=== PATIENT | male | born 1975 | race African-American/Black ===

== ENCOUNTER 2017-06-20 08:00 | Inpatient (IN) | payer OTHER ==
[2017-06-17 17:52] VITALS: BMI 24.7
[~2017-06-20 08:00] MED LIST: VANCOMYCIN 1,000 MG VIAL (RESTRICTED TO ID ONLY) IVPB ONE; ceFAZolin SODIUM 1 GM VIAL IVPB ONE
[2017-06-20] MEDS ORDERED: THROMBIN (BOVINE) 5,000 UNIT VIAL TP ONE ×4 (18:36→21:34)
[2017-06-20] MEDS ORDERED: ROCURONIUM BROMIDE 50 MG/5 ML VIAL ONE ×2 (18:55)
[2017-06-20] MEDS ORDERED: PROPOFOL 20 ML ONE ×12 (18:56)
[2017-06-20] MEDS ORDERED: LIDOCAINE HCL/PF 2% SDV 5ML VIAL ONE (18:56)
[2017-06-20] MEDS ORDERED: fentaNYL CITRATE 250 MCG/5 ML VIAL ONE ×4 (19:43→22:02)
[2017-06-20] MEDS ORDERED: VANCOMYCIN 1,000 MG VIAL (RESTRICTED TO ID ONLY) IVPB ONE (19:46)
[2017-06-20] MEDS ORDERED: ceFAZolin SODIUM 1 GM VIAL IVPB ONE ×2 (19:46→22:24)
[2017-06-20] MEDS ORDERED: TRANEXAMIC ACID 1000 MG/10 ML VIAL ONE ×2 (20:09→23:05)
[2017-06-20] MEDS ORDERED: DEXAMETHASONE SOD PHOSPHATE 4 MG/1 ML VIAL ONE (20:46)
[2017-06-20] MEDS ORDERED: GELATIN, ABSORBABLE 100 EACH SPONGE TP ONE (20:50)
--- NOTE | 2017-06-20 23:29 | OP ---
Operative Note - Note: Operative Date: 06/20/17 Pre-Operative Diagnosis: L5/S1 spondylolisthesis with instability L3/4 L4/5 L5/ S1 Stenosis with instability Operation: L3/4 L4/5 L5/S1 Laminectomy with posterior interbody fusion and L3 to S1 Posterolateral Arthrodesis Findings: Stenosis L3 to S1 Implants: Cages Interbody L5/S1 8 L4/5 L3/4 Tetrafuse. Pedicle Screw instrumentation Precision Surgeon: Rk Hsu Cannoneer: Moreno Hsu ([email or web address]) Anesthesiologist/GARMENT LINER: Jay Chacon Anesthesia: General Specimens Removed: Disc L3/4 L4/5 L5/S1 Estimated Blood Loss (mls): 500 Drains & Tubes with Location: !/8 Hemovac. Subcutaneous Operative Report Dictated: Yes
[2017-06-20] MEDS ORDERED: LACTATED RINGERS SOLUTION 1,000 ML IV SCH (23:45)
[2017-06-20] MEDS ORDERED: ONDANSETRON 4 MG/2 ML VIAL IVPUSH PRN ×2 (23:53→23:58)
[2017-06-20] MEDS ORDERED: PROMETHAZINE HCL 25 MG/1 ML VIAL IVPUSH PRN (23:53)
[2017-06-20] MEDS ORDERED: oxyCODONE HCL 5 MG TABLET PO PRN (23:53)
--- NOTE | 2017-06-20 23:54 | PN ---
Progress Note (short form) - Note Progress Note: 41M s/p L3-L4, L4-L5, L5-S1 PLIF; L3-S1 laminectomies; L3-S1 posterior instrumented spinal fusion POD #0. -Pain control: per anaesthesia team; SALES AND LEASING CONSULTANT. -Mechanical DVT PPx. only: SCD's, HEATHER's. -Incentive spirometry; aggressive pulmonary toilet; raise head of bed as tolerated. -NPO until flatus. -PT/OT/Rehab, OOB. -WBAT B/L LE. -f/u drain output. -Maintain Marr catheter until ambulating. -Renata-op Abx: Ancef, Vanc. -Admit to ICU immediately post-op. -Care per medical hospitalist team. -Discharge planning. -Will follow. Rk Hsu MD (Orthopaedic Surgery).
[2017-06-20] MEDS ORDERED: HYDROmorphone *PCA* 6MG/30ML DISP.SYRIN PCA ONE (23:57)
[2017-06-20] MEDS ORDERED: diazePAM CARPU-JECT 10 MG/2 ML DISP.SYRIN IVPUSH PRN (23:58)
[2017-06-21] MEDS: KETOROLAC TROMETHAMINE 30 MG/1 ML VIAL IVPUSH PRN ×2 (00:15→21:25)
[2017-06-21] MEDS: ACETAMINOPHEN 1000 MG/100 ML VIAL (NON FORMULARY) IVPB SCH ×3 (00:30→15:45)
[2017-06-21] MEDS ORDERED: DESFLURANE GAS 240 ML BOTTLE IH ONE (00:40)
[2017-06-21] MEDS: HYDROmorphone *PCA* 6MG/30ML DISP.SYRIN PCA SCH ×2 (01:20→15:10)
[2017-06-21 06:55] LABS: HEMATOCRIT 34.5 % (35.4-49); HEMOGLOBIN 11.6 GM/dL (11.7-16.9); MCH 28.9 pg (25.7-33.7); MCHC 33.7 g/dl (32.0-35.9); MEAN CELL VOLUME 85.6 fl (80-96); MEAN PLT VOLUME 9.2 fl (7.5-11.1); PLATELET COUNT 161 K/MM3 (134-434); RBC 4.02 M/mm3 (4.00-5.60); RDW 14.1 % (11.9-15.9)
[2017-06-21] MEDS ORDERED: VANCOMYCIN 1,000 MG in DEXTROSE 5%-WATER - 250 ML IVPB ONE (07:00)
[2017-06-21 07:33] LABS: ANION GAP 8 (8-16); BLOOD UREA NITROGEN 9 mg/dL (7-18); CALCIUM 8.1 mg/dL (8.5-10.1); CHLORIDE 104 mmol/L (98-107); CO2 25 mmol/L (21-32); CREATININE 0.9 mg/dL (0.7-1.3); GLUCOSE,RANDOM 169 mg/dL (74-106); POTASSIUM 4.2 mmol/L (3.5-5.1); SODIUM 137 mmol/L (136-145)
[2017-06-21] MEDS: ceFAZolin 2 GRAM PREMIX BAG IVPB SCH (08:03)
[2017-06-21] MEDS: LACTATED RINGERS SOLUTION 1,000 ML IV SCH ×2 (09:50)
--- NOTE | 2017-06-21 12:36 | PN ---
Progress Note, Physician Chief Complaint: Day #1 s/p L3-S1 fusion - Current Medication List Current Medications: Active Medications Acetaminophen (Ofirmev Injection -) 1,000 mg IVPB Q8H [facility] Stop: 06/21/17 15:46 Last Admin: 06/21/17 09:40 Dose: 1,000 mg Diazepam (Valium Injection -) 5 mg IVPUSH Q6H PRN PRN Reason: BACK PAIN Fentanyl (Sublimaze Injection -) 50 mcg IVPUSH [id number] PRN PRN Reason: PAIN-PACU ORDER X 4 DOSES ONLY Hydromorphone HCl (Dilaudid Hooker Laster -) 0 mg REMARKETING REP REMARKETING REP KHRIS PRN Reason: Protocol Stop: 06/27/17 23:56 Last Admin: 06/21/17 01:20 Dose: Not Given Lactated Ringer's (Lactated Ringers Solution) 1,000 mls @ 100 mls/hr IV ASDIR KHRIS Last Admin: 06/21/17 09:50 Dose: 100 mls/hr Ketorolac Tromethamine (Toradol Injection -) 30 mg IVPUSH Q6H PRN PRN Reason: PAIN LEVEL 6-10 Stop: 06/25/17 23:57 Last Admin: 06/21/17 00:15 Dose: 30 mg Ondansetron HCl (Zofran Injection) 4 mg IVPUSH Q6H PRN PRN Reason: NAUSEA AND/OR VOMITING Last Admin: 06/21/17 05:57 Dose: 4 mg Ondansetron HCl (Zofran Injection) 4 mg IVPUSH Q6H PRN PRN Reason: NAUSEA AND/OR VOMITING Oxycodone HCl (Roxicodone -) 10 mg PO Q4H PRN PRN Reason: PAIN LEVEL 6-10 Stop: 06/21/17 23:52 Promethazine HCl (Phenergan Injection -) 12.5 mg IVPUSH Q6H PRN PRN Reason: NAUSEA-FOR RESCUE AFTER 15 MIN - Objective Vital Signs: Vital Signs Temperature 98.3 F 06/21/17 12:00 Pulse Rate 78 06/21/17 12:00 Respiratory Rate 18 06/21/17 12:00 Blood Pressure 136/80 06/21/17 12:00 O2 Sat by Pulse Oximetry (%) 100 06/21/17 09:00 Labs: CBC, BMP 06/21/17 05:20 03/20/18 05:20 Assessment/Plan Pt tolerated procecure well. Pain under good control with REMARKETING REP use; resting comfortably in bed. Continue current management.
--- NOTE | 2017-06-21 13:38 | OP ---
DATE OF OPERATION: DATE OF DICTATION: 06/20/2017 SURGEON: Rk Hsu MD CO-SURGEON: Moreno Hsu MD PREOPERATIVE DIAGNOSES: Segmental instability of lumbar spine due to spondylolisthesis at L5-S1, spinal stenosis at L3-4, L4-5, and L5-S1 due to diskogenic-associated disease and associated spinal stenosis and segmental instability. ANESTHESIA: General. ANTIBIOTICS GIVEN: Kefzol 2 g and vancomycin 1 g preoperative, Kefzol 1 g at the time of seating of instrumentation. OPERATION PERFORMED: 1. Laminectomy, L2, L3, L4, with undercutting facetectomy. 2. Posterior lumbar interbody fusion, L3-4, L4-5, and L5-S1 with cage. 3. Incidental durotomy and repair. 4. Zhu-Epstein osteotomy, L3-4. 5. Partial corpectomy, L5 on the left. 6. Pedicle screw instrumentation, L3, L4, L5, and S1. 7. Posterolateral arthrodesis, L3, L4, L5, and S1. 8. Complex wound closure, 20 cm. 9. Use of operating fluoroscopy and bone marrow aspirate concentrate. PROCEDURE: Patient correctly identified, brought into the operating room. Lumbar spine was prepped in the routine manner with Betadine scrub solution, wiped off with alcohol, DuraPrep applied. A midline incision was utilized. The dissection was taken from the tip of the spinous process of L2 to the tip of the spinous process of S1. Subperiosteal dissection performed. The dissection was taken down to the spinous process, over the lamina, over the facet joints, to the intertransverse plane, exposing from the ala of the sacrum right up to the transverse process and tip of the transverse process of L3. Utilizing lateral fluoroscopic x-ray, the correct levels for surgery were identified. At that level, at that point, using Leksell rongeurs, Kerrison upcuts, and osteotomes to implode the bone from the vertebral lateral wall, imploding inwards towards the canal, the entire laminae of L3, L4, and L5 were resected and an undercutting facetectomy performed at L3, L4, and L5 appropriately. This enabled a complete freeing of the entire dura. A small adherence of dura was noted, giving a very small, non-leaking dural tear, but we placed one 4-0 nylon suture into the area to ensure there was no leakage at all. Once this had been performed from the left-hand side, the disk of L5-S1 was identified. The spondylolisthesis was readily seen. It was impossible to enter the disk until this part of the vertebral body was resected. A partial corpectomy was then performed on the left lateral side, enabling access to the disk. Using panfilo, the disk was resected completely. Shaving was to a size 8, and a size 9 cage inserted 5-degree lordosis. Prior to insertion of the cage, the actual soft tissue from the disk space was resected completely. The cage insertion and the entire preparation of the cage space were performed by co-surgeon, Dr. Moreno Hsu. Once this had been performed, the exact same maneuvers were performed at L4-5 and L3-4 on the right-hand side. The cage was inserted at L4-5, and on the left -hand side, the cage was inserted appropriately at L3-4. The L3-4 cage was inserted by Dr. Moreno Hsu. The right cage was inserted by Dr. Rk Hsu. Each interdisk space was treated in exactly the same way with resection of all disk material using panfilo, serrated curettes and pituitary rongeurs. As noted above, the cage size at L5-S1 was size 9. At L4-5 and L3-4, shaving was to size 10 and pressfitted a size 11 cage. Each cage was filled with bone graft, and each interdisk space was packed with bone that had been harvested from the posterior elements and milled in a [employer] mill. Once this had been performed, at L3-4, the Zhu-Epstein osteotomy was completed by resecting the entire pars interarticularis as well as the inferior facet. This enabled correction of the tendency towards kyphosis. Pedicle screws were then inserted from L3, L4, L5, and S1, both left- and right-hand sides. Each screw tested was well above the parameters for safety. The rods were then contoured onto the screw heads, fixed solidly with the appropriate cap devices, and one crosslink applied. The bone grafts were a mixture of autologous bone mixed with allograft extension in the form of demineralized strips. This was mixed with 60 mL of marrow. This marrow was harvested from the left posterior ilium and spun down for the CD34 cells. The posterolateral arthrodesis was completed while placing bone graft in the intertransverse plane, left- and right-hand sides, on the spinous processes from L3 to S1 to the ala of the sacrum. The dura was tested with a Valsalva maneuver and found to be completely sealed. Thorough lavage throughout the operation. The retractors were released every 20-30 minutes. Muscle was appropriately trimmed of necrotic and damaged muscle. Closure: Muscle 1 Vicryl , fascia 1 Vicryl, subcutaneous 1 and 2-0 Vicryl, skin 3-0 Monocryl with Steri- Strips. Drainage: A 1/8-inch Hemovac subcutaneously x1. This completed the complex wound closure. Operation went extremely well. No complications. MD ARLIN Watkins/[id number] MTDD
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
--- NOTE | 2017-06-21 14:41 | PN ---
Teaching Attending Note Name of Resident: Asim Rivera ATTENDING PHYSICIAN STATEMENT I saw and evaluated the patient. I reviewed the resident's note and discussed the case with the resident. I agree with the resident's findings and plan as documented. SUBJECTIVE: Patient seen and examined in the ICU. POD #1: L3-L4, L4-L5, L5-S1 PLIF, L3-S1 laminectomy, and L3-S1 spinal fusion. He is awake and alert. Mild SABA and back discomfort overnight but now adequately controlled. On Dilaudid REGISTRATION SCHEDULING SPECIALIST. No CP or SOB. Intake & Output 06/18/17 06/19/17 06/20/17 06/21/17 23:59 23:59 23:59 23:59 Intake Total 2675 650 Output Total 1000 970 Balance 1675 -320 Weight 173 lb 14.4 oz Last Vital Signs Temp Pulse Resp BP Pulse Ox 100.3 F H 95 H 13 130/74 100 06/21/17 14:00 06/21/17 14:00 06/21/17 14:00 06/21/17 14:00 06/21/17 09:00 Active Medications Acetaminophen (Ofirmev Injection -) 1,000 mg IVPB Q8H [facility] Stop: 06/21/17 15:46 Last Admin: 06/21/17 09:40 Dose: 1,000 mg Diazepam (Valium Injection -) 5 mg IVPUSH Q6H PRN PRN Reason: BACK PAIN Fentanyl (Sublimaze Injection -) 50 mcg IVPUSH [id number] PRN PRN Reason: PAIN-PACU ORDER X 4 DOSES ONLY Hydromorphone HCl (Dilaudid Postal Clerk -) 0 mg REGISTRATION SCHEDULING SPECIALIST REGISTRATION SCHEDULING SPECIALIST KHRIS PRN Reason: Protocol Stop: 06/27/17 23:56 Last Admin: 06/21/17 01:20 Dose: Not Given Lactated Ringer's (Lactated Ringers Solution) 1,000 mls @ 100 mls/hr IV ASDIR KHRIS Last Admin: 06/21/17 09:50 Dose: 100 mls/hr Ketorolac Tromethamine (Toradol Injection -) 30 mg IVPUSH Q6H PRN PRN Reason: PAIN LEVEL 6-10 Stop: 06/25/17 23:57 Last Admin: 06/21/17 00:15 Dose: 30 mg Ondansetron HCl (Zofran Injection) 4 mg IVPUSH Q6H PRN PRN Reason: NAUSEA AND/OR VOMITING Last Admin: 06/21/17 05:57 Dose: 4 mg Ondansetron HCl (Zofran Injection) 4 mg IVPUSH Q6H PRN PRN Reason: NAUSEA AND/OR VOMITING Oxycodone HCl (Roxicodone -) 10 mg PO Q4H PRN PRN Reason: PAIN LEVEL 6-10 Stop: 06/21/17 23:52 Promethazine HCl (Phenergan Injection -) 12.5 mg IVPUSH Q6H PRN PRN Reason: NAUSEA-FOR RESCUE AFTER 15 MIN GENERAL: Awake, alert, and fully oriented, in no acute distress. HEAD: Normal with no signs of trauma. EYES: sclera anicteric, conjunctiva clear. No lid lag. EARS, NOSE, THROAT: Ears normal, nares patent, oropharynx clear without exudates. Moist mucous membranes. NECK: Normal range of motion, supple without lymphadenopathy, JVD, or masses. LUNGS: Breath sounds equal, clear to auscultation bilaterally. No wheezes, and no crackles. No accessory muscle use. HEART: Regular rate and rhythm, normal S1 and S2 without murmur, rub or gallop. ABDOMEN: Soft, nontender, not distended, normoactive bowel sounds, no guarding, no rebound, no masses. No hepatomegaly or splenomegaly. MUSCULOSKELETAL: Normal range of motion at all joints. No bony deformities or tenderness. No CVA tenderness. UPPER EXTREMITIES: 2+ pulses, warm, well-perfused. No cyanosis. No clubbing. Cap refill <2 seconds. No peripheral edema. LOWER EXTREMITIES: 2+ pulses, warm, well-perfused. No calf tenderness. No peripheral edema. NEUROLOGICAL: Cranial nerves II-XII intact. Normal speech. Normal gait. PSYCHIATRIC: Cooperative. Good eye contact. Appropriate mood and affect. SKIN: Warm, dry, normal turgor, no rashes or lesions noted. post-op bandages intact. Laboratory Results - last 24 hr 06/20/17 06/21/17 06/21/17 16:00 05:20 05:20 WBC 12.0 H RBC 4.02 Hgb 11.6 L Hct 34.5 L MCV 85.6 MCH 28.9 MCHC 33.7 RDW 14.1 Plt Count 161 MPV 9.2 Sodium 137 Potassium 4.2 Chloride 104 Carbon Dioxide 25 Anion Gap 8 BUN 9 Creatinine 0.9 Random Glucose 169 H Calcium 8.1 L Blood Type B POSITIVE Antibody Screen Negative ASSESSMENT/PLAN: POD#1 L3-L4, L4-L5, L5-S1 PLIF, L3-S1 laminectomy, and L3-S1 spinal fusion. -Monitor I/O's -Pain management as ordered -Incentive spirometry -Normal diet resumed after flatus -ABX per protocol -SCD's for VTE prophylaxis -Will replete electrolytes PRN -Further management per Surgical attending Dr Keller Critical care time spent in reviewing chart, evaluating patient and formulating plan - 36 minutes.
[2017-06-21] MEDS ORDERED: HYDROmorphone *PCA* 6MG/30ML DISP.SYRIN PCA ONE (15:09)
--- NOTE | 2017-06-21 16:18 | HP ---
CHIEF COMPLAINT: PCP: Surgeon: Dr. Go Hsu HISTORY OF PRESENT ILLNESS: 41 year-old male with L5/S1 spondylolisthesis with instability, and L3/4 L4/5 L5 /S1 stenosis with instability, now s/p L3/4 L4/5 L5/S1 laminectomy with posterior interbody fusion, and L3 to S1 posterolateral arthrodesis. 01/11 pain, gastric distress from PO meds 06/16 [facility] 06/[address] Hsu Recent Travel: PAST MEDICAL HISTORY: PAST SURGICAL HISTORY: Social History: Smoking: Alcohol: Drugs: Family History: Allergies No Known Drug Allergies Allergy (Verified 06/20/17 16:36) HOME MEDICATIONS: Home Medications Medication Instructions Recorded Diazepam [Valium] 10 mg PO HS 06/17/17 Oxycodone HCl/Acetaminophen 1 each PO TID 06/17/17 [Percocet 10-325 mg Tablet] Medical Marijuana [Medical 0 inh IH PRN PRN 06/20/17 Marijuana Oil] REVIEW OF SYSTEMS CONSTITUTIONAL: Absent: fever, chills, diaphoresis, generalized weakness, malaise, loss of appetite, weight change HEENT: Absent: rhinorrhea, nasal congestion, throat pain, throat swelling, difficulty swallowing, mouth swelling, ear pain, eye pain, visual changes CARDIOVASCULAR: Absent: chest pain, syncope, palpitations, irregular heart rate, lightheadedness , peripheral edema RESPIRATORY: Absent: cough, shortness of breath, dyspnea with exertion, orthopnea, wheezing, stridor, hemoptysis GASTROINTESTINAL: Absent: abdominal pain, abdominal distension, nausea, vomiting, diarrhea, constipation, melena, hematochezia GENITOURINARY: Absent: dysuria, frequency, urgency, hesitancy, hematuria, flank pain, genital pain MUSCULOSKELETAL: Absent: myalgia, arthralgia, joint swelling, back pain, neck pain SKIN: Absent: rash, itching, pallor HEMATOLOGIC/IMMUNOLOGIC: Absent: easy bleeding, easy bruising, lymphadenopathy, frequent infections ENDOCRINE: Absent: unexplained weight gain, unexplained weight loss, heat intolerance, cold intolerance NEUROLOGIC: Absent: headache, focal weakness or paresthesias, dizziness, unsteady gait, seizure, mental status changes, bladder or bowel incontinence PSYCHIATRIC: Absent: anxiety, depression, suicidal or homicidal ideation, hallucinations. PHYSICAL EXAMINATION Vital Signs Temperature 100 F H 06/21/17 18:00 Pulse Rate 90 03/20/18 20:00 Respiratory Rate 14 06/21/17 20:00 Blood Pressure 145/79 06/21/17 20:00 O2 Sat by Pulse Oximetry (%) 100 06/21/17 09:00 GENERAL: Awake, alert, and fully oriented, in no acute distress. HEAD: Normal with no signs of trauma. EYES: Pupils equal, round and reactive to light, extraocular movements intact, sclera anicteric, conjunctiva clear. No lid lag. EARS, NOSE, THROAT: Ears normal, nares patent, oropharynx clear without exudates. Moist mucous membranes. NECK: Normal range of motion, supple without lymphadenopathy, JVD, or masses. LUNGS: Breath sounds equal, clear to auscultation bilaterally. No wheezes, and no crackles. No accessory muscle use. HEART: Regular rate and rhythm, normal S1 and S2 without murmur, rub or gallop. ABDOMEN: Soft, nontender, not distended, normoactive bowel sounds, no guarding, no rebound, no masses. No hepatomegaly or splenomegaly. MUSCULOSKELETAL: Normal range of motion at all joints. No bony deformities or tenderness. No CVA tenderness. UPPER EXTREMITIES: 2+ pulses, warm, well-perfused. No cyanosis. No clubbing. No peripheral edema. LOWER EXTREMITIES: 2+ pulses, warm, well-perfused. No calf tenderness. No peripheral edema. NEUROLOGICAL: Cranial nerves II-XII intact. Normal speech. Normal gait. PSYCHIATRIC: Cooperative. Good eye contact. Appropriate mood and affect. SKIN: Warm, dry, normal turgor, no rashes or lesions noted, normal capillary refill. Laboratory Results - last 24 hr 06/20/17 06/21/17 06/21/17 16:00 05:20 05:20 WBC 12.0 H RBC 4.02 Hgb 11.6 L Hct 34.5 L MCV 85.6 MCH 28.9 MCHC 33.7 RDW 14.1 Plt Count 161 MPV 9.2 Sodium 137 Potassium 4.2 Chloride 104 Carbon Dioxide 25 Anion Gap 8 BUN 9 Creatinine 0.9 Random Glucose 169 H Calcium 8.1 L Blood Type B POSITIVE Antibody Screen Negative ASSESSMENT/PLAN POD#1 L3-L4, L4-L5, L5-S1 PLIF, L3-S1 laminectomy, and L3-S1 spinal fusion. -Monitor I/O's -Pain management as ordered -Incentive spirometry -Normal diet resumed after flatus -ABX per protocol -SCD's for VTE prophylaxis -Will replete electrolytes PRN -Further management per Surgical attending Dr Keller Critical care time spent in reviewing chart, evaluating patient and formulating plan - 36 minutes. -Pain control: per anaesthesia team; PROSTHETIC AIDE. -Mechanical DVT PPx. only: SCD's, HEATHER's. -Incentive spirometry; aggressive pulmonary toilet; raise head of bed as tolerated. -NPO until flatus. -PT/OT/Rehab, OOB. -WBAT B/L LE. -f/u drain output. -Maintain Marr catheter until ambulating. -Renata-op Abx: Ancef, Vanc. -Admit to ICU immediately post-op. -Care per medical hospitalist team. -Discharge planning. -Will follow. Hospitalist Screening - Colonoscopy Questionnaire Colonoscopy Questionnaire: Colonoscopy Questionnaire
[2017-06-21] MEDS ORDERED: diazePAM 5 MG TABLET PO PRN (21:30)
[2017-06-21] MEDS: PANTOPRAZOLE 40 MG TABLET (FP) PO SCH (21:32)
--- NOTE | 2017-06-21 21:53 | PN ---
Physical Exam: SUBJECTIVE: Patient seen and examined OBJECTIVE: Vital Signs Period Temp Pulse Resp BP Sys/Aguilar Pulse Ox Last 24 Hr 97.2 F-100.3 F 57-98 12-20 97-155/47-87 98-100 GENERAL: The patient is awake, alert, and fully oriented, in no acute distress. HEAD: Normal with no signs of trauma. EYES: PERRL, extraocular movements intact, sclera anicteric, conjunctiva clear. No ptosis. ENT: Ears normal, nares patent, oropharynx clear without exudates, moist mucous membranes. NECK: Trachea midline, full range of motion, supple. LUNGS: Breath sounds equal, clear to auscultation bilaterally, no wheezes, no crackles, no accessory muscle use. HEART: Regular rate and rhythm, S1, S2 without murmur, rub or gallop. ABDOMEN: Soft, nontender, nondistended, normoactive bowel sounds, no guarding, no rebound, no hepatosplenomegaly, no masses. EXTREMITIES: 2+ pulses, warm, well-perfused, no edema. NEUROLOGICAL: Cranial nerves II through XII grossly intact. Normal speech, gait not observed. PSYCH: Normal mood, normal affect. SKIN: Warm, dry, normal turgor, no rashes or lesions noted Laboratory Results - last 24 hr 06/21/17 06/21/17 05:20 05:20 WBC 12.0 H RBC 4.02 Hgb 11.6 L Hct 34.5 L MCV 85.6 MCH 28.9 MCHC 33.7 RDW 14.1 Plt Count 161 MPV 9.2 Sodium 137 Potassium 4.2 Chloride 104 Carbon Dioxide 25 Anion Gap 8 BUN 9 Creatinine 0.9 Random Glucose 169 H Calcium 8.1 L Active Medications Generic Name Dose Route Start Last Admin Trade Name Freq PRN Reason Stop Dose Admin Diazepam 10 mg 06/21/17 21:30 Valium - PO 06/24/17 21:30 Q6H PRN WITHDRAWAL(CONT SUBST) Fentanyl 50 mcg 06/20/17 23:53 Sublimaze Injection - IVPUSH [id number] PRN PAIN-PACU ORDER X 4 DOSES ONLY Hydromorphone HCl 0 mg 06/20/17 23:45 06/21/17 15:10 Dilaudid Wheel Press Clerk - ONCOLOGY NURSE 06/27/17 23:56 6 mg ONCOLOGY NURSE KHRIS Administration Protocol Lactated Ringer's 1,000 mls @ 100 mls/hr 06/20/17 23:45 06/21/17 09:50 Lactated Ringers Solution IV 100 mls/hr ASDIR KHRIS Administration Ketorolac Tromethamine 30 mg 06/20/17 23:58 06/21/17 21:25 Toradol Injection - IVPUSH 06/25/17 23:57 30 mg Q6H PRN Administration PAIN LEVEL 6-10 Ondansetron HCl 4 mg 06/20/17 23:53 06/21/17 05:57 Zofran Injection IVPUSH 4 mg Q6H PRN Administration NAUSEA AND/OR VOMITING Ondansetron HCl 4 mg 06/20/17 23:58 Zofran Injection IVPUSH Q6H PRN NAUSEA AND/OR VOMITING Oxycodone HCl 10 mg 06/20/17 23:53 06/21/17 16:10 Roxicodone - PO 06/21/17 23:52 10 mg Q4H PRN Administration PAIN LEVEL 6-10 Pantoprazole Sodium 40 mg 06/21/17 21:00 06/21/17 21:32 Protonix - PO 40 mg DAILY KHRIS Administration Promethazine HCl 12.5 mg 06/20/17 23:53 Phenergan Injection - IVPUSH Q6H PRN NAUSEA-FOR RESCUE AFTER 15 MIN ASSESSMENT/PLAN: 41 year-old male with no significant PMH. L5/S1 spondylolisthesis with instability, and L3/4 L4/5 L5/S1 stenosis with instability s/p L3/4 L4/5 L5/S1 laminectomy with posterior interbody fusion, and L3 to S1 posterolateral arthrodesis POD #1 --ambulating around the unit --pain management per anesthesia --perioperative antibiotics per surgery --protonix for GI upset FEN Fluids: LR @ 10mL/hr Electrolytes: replete as indicated Nutrition: advanced today to clears DVT prophylaxis: SCDs, oob, ambulation Physical therapy: WBAT Dispo: continues to require inpatient care. Full code. Visit type - Emergency Visit Emergency Visit: Yes ED Registration Date: 06/20/17 Care time: The patient presented to the Emergency Department on the above date and was hospitalized for further evaluation of their emergent condition. - New Patient This patient is new to me today: Yes Date on this admission: 06/21/17 - Critical Care Critical Care patient: No
[2017-06-22 07:00] LABS: ALBUMIN 3.3 g/dl (3.4-5.0); ANION GAP 9 (8-16); BLOOD UREA NITROGEN 6 mg/dL (7-18); CALCIUM 8.4 mg/dL (8.5-10.1); CHLORIDE 101 mmol/L (98-107); CO2 29 mmol/L (21-32); GLUCOSE,RANDOM 119 mg/dL (74-106); MAGNESIUM 2.2 mg/dL (1.8-2.4); POTASSIUM 3.8 mmol/L (3.5-5.1); SODIUM 139 mmol/L (136-145)
[2017-06-22 07:02] LABS: BASO % 0.3 % (0-2.0); EOS % 0.1 % (0-4.5); HEMATOCRIT 30.6 % (35.4-49); HEMOGLOBIN 10.3 GM/dL (11.7-16.9); LYMPH % 11.9 % (8-40); MCH 29.4 pg (25.7-33.7); MCHC 33.6 g/dl (32.0-35.9); MEAN CELL VOLUME 87.5 fl (80-96); MEAN PLT VOLUME 9.9 fl (7.5-11.1); MONO % 8.6 % (3.8-10.2); NEUT % 79.1 % (42.8-82.8); PLATELET COUNT 149 K/MM3 (134-434); RDW 14.7 % (11.9-15.9)
[2017-06-22 07:05] LABS: ALK PHOS 48 U/L (45-117); BILIRUBIN,TOTAL 0.5 mg/dL (0.2-1.0); CREATININE 0.9 mg/dL (0.7-1.3); PHOSPHOROUS 2.2 mg/dL (2.5-4.9); SGOT/AST 50 U/L (15-37); SGPT/ALT 21 U/L (12-78); TOT PROT 5.9 g/dl (6.4-8.2)
[2017-06-22] MEDS: KETOROLAC TROMETHAMINE 30 MG/1 ML VIAL IVPUSH PRN (07:32)
[2017-06-22] MEDS ORDERED: HYDROmorphone *PCA* 6MG/30ML DISP.SYRIN PCA ONE (07:50)
[2017-06-22] MEDS: HYDROmorphone *PCA* 6MG/30ML DISP.SYRIN PCA SCH ×3 (07:53→08:21)
[2017-06-22] MEDS ORDERED: POTASSIUM CHLORIDE TABS 20 MEQ TABLET.ER (FP) PO ONE (09:30)
[2017-06-22] MEDS: PANTOPRAZOLE 40 MG TABLET (FP) PO SCH (09:35)
--- NOTE | 2017-06-22 10:30 | PN ---
Teaching Attending Note Name of Resident: Asim Rivera ATTENDING PHYSICIAN STATEMENT I saw and evaluated the patient. I reviewed the resident's note and discussed the case with the resident. I agree with the resident's findings and plan as documented. SUBJECTIVE: Patient seen and examined in the ICU. POD #2: L3-L4, L4-L5, L5-S1 PLIF, L3-S1 laminectomy, and L3-S1 spinal fusion. Some mild increase in back pain and SABA. Dilaudid COMMUNITY OUTREACH WORKER increased. No CP or SOB. Intake & Output 06/19/17 06/20/17 06/21/17 06/22/17 23:59 23:59 23:59 23:59 Intake Total 2675 2400 1600 Output Total 1000 1440 1400 Balance 1675 960 200 Weight 173 lb 14.4 oz 175 lb 7.807 oz Last Vital Signs Temp Pulse Resp BP Pulse Ox 99.5 F 89 18 134/75 100 06/22/17 10:00 06/22/17 10:00 06/22/17 10:00 06/22/17 10:00 06/22/17 05:01 Active Medications Diazepam (Valium -) 10 mg PO Q6H PRN PRN Reason: WITHDRAWAL(CONT SUBST) Stop: 06/24/17 21:30 Last Admin: 06/21/17 22:23 Dose: 10 mg Fentanyl (Sublimaze Injection -) 50 mcg IVPUSH [id number] PRN PRN Reason: PAIN-PACU ORDER X 4 DOSES ONLY Hydromorphone HCl (Dilaudid Correspondence Specialist -) 0 mg COMMUNITY OUTREACH WORKER COMMUNITY OUTREACH WORKER KHRIS PRN Reason: Protocol Stop: 06/27/17 23:56 Last Admin: 06/22/17 08:21 Dose: 0.2 mg Lactated Ringer's (Lactated Ringers Solution) 1,000 mls @ 100 mls/hr IV ASDIR KHRIS Last Admin: 06/21/17 09:50 Dose: 100 mls/hr Ketorolac Tromethamine (Toradol Injection -) 30 mg IVPUSH Q6H PRN PRN Reason: PAIN LEVEL 6-10 Stop: 06/25/17 23:57 Last Admin: 06/22/17 07:32 Dose: 30 mg Ondansetron HCl (Zofran Injection) 4 mg IVPUSH Q6H PRN PRN Reason: NAUSEA AND/OR VOMITING Last Admin: 06/21/17 05:57 Dose: 4 mg Ondansetron HCl (Zofran Injection) 4 mg IVPUSH Q6H PRN PRN Reason: NAUSEA AND/OR VOMITING Pantoprazole Sodium (Protonix -) 40 mg PO DAILY KHRIS Last Admin: 06/22/17 09:35 Dose: 40 mg Promethazine HCl (Phenergan Injection -) 12.5 mg IVPUSH Q6H PRN PRN Reason: NAUSEA-FOR RESCUE AFTER 15 MIN GENERAL: Awake, alert, and fully oriented, in no acute distress. HEAD: Normal with no signs of trauma. EYES: sclera anicteric, conjunctiva clear. No lid lag. EARS, NOSE, THROAT: Ears normal, nares patent, oropharynx clear without exudates. Moist mucous membranes. NECK: Normal range of motion, supple without lymphadenopathy, JVD, or masses. LUNGS: Breath sounds equal, clear to auscultation bilaterally. No wheezes, and no crackles. No accessory muscle use. HEART: Regular rate and rhythm, normal S1 and S2 without murmur, rub or gallop. ABDOMEN: Soft, nontender, not distended, normoactive bowel sounds, no guarding, no rebound, no masses. No hepatomegaly or splenomegaly. MUSCULOSKELETAL: Normal range of motion at all joints. No bony deformities or tenderness. No CVA tenderness. UPPER EXTREMITIES: 2+ pulses, warm, well-perfused. No cyanosis. No clubbing. Cap refill <2 seconds. No peripheral edema. LOWER EXTREMITIES: 2+ pulses, warm, well-perfused. No calf tenderness. No peripheral edema. NEUROLOGICAL: Cranial nerves II-XII intact. Normal speech. Normal gait. PSYCHIATRIC: Cooperative. Good eye contact. Appropriate mood and affect. SKIN: Warm, dry, normal turgor, no rashes or lesions noted. post-op bandages intact. Laboratory Results - last 24 hr 06/22/17 06/22/17 06:10 06:10 WBC 9.0 RBC 3.50 L Hgb 10.3 L D Hct 30.6 L MCV 87.5 MCH 29.4 MCHC 33.6 RDW 14.7 Plt Count 149 MPV 9.9 Neutrophils % 79.1 Lymphocytes % 11.9 Monocytes % 8.6 Eosinophils % 0.1 Basophils % 0.3 Sodium 139 Potassium 3.8 Chloride 101 Carbon Dioxide 29 Anion Gap 9 BUN 6 L D Creatinine 0.9 Creat Clearance w eGFR > 60 Random Glucose 119 H D Calcium 8.4 L Phosphorus 2.2 L Magnesium 2.2 Total Bilirubin 0.5 AST 50 H ALT 21 Alkaline Phosphatase 48 Total Protein 5.9 L Albumin 3.3 L ASSESSMENT/PLAN: POD#2: L3-L4, L4-L5, L5-S1 PLIF, L3-S1 laminectomy, and L3-S1 spinal fusion. -Monitor I/O's -Pain management as ordered -Incentive spirometry -Normal diet resumed after flatus -ABX per protocol -SCD's for VTE prophylaxis -Will replete electrolytes PRN -Further management per Surgical attending Dr Keller Critical care time spent in reviewing chart, evaluating patient and formulating plan - 36 minutes.
[2017-06-22] MEDS ORDERED: CALCIUM ACETATE 667 MG CAPSULE (FP) PO SCH ×2 (12:00)
--- NOTE | 2017-06-22 12:01 | PN ---
Physical Exam: SUBJECTIVE: Mr. Smart reports his pain increased throughout the night however is now well controlled after morning medication dose. He currently has no complaints. OBJECTIVE: Vital Signs Period Temp Pulse Resp BP Sys/Aguilar Pulse Ox Last 24 Hr 98.3 F-100.3 F 75-98 12-18 105-145/54-87 98-100 GENERAL: The patient is awake, alert, and fully oriented, in no acute distress. HEAD: Normal with no signs of trauma. EYES: PERRL, extraocular movements intact, sclera anicteric, conjunctiva clear. No ptosis. ENT: Ears normal, nares patent, oropharynx clear without exudates, moist mucous membranes. NECK: Trachea midline, full range of motion, supple. LUNGS: Breath sounds equal, clear to auscultation bilaterally, no wheezes, no crackles, no accessory muscle use. HEART: Regular rate and rhythm, S1, S2 without murmur, rub or gallop. ABDOMEN: Soft, nontender, nondistended, normoactive bowel sounds, no guarding, no rebound, no hepatosplenomegaly, no masses. EXTREMITIES: 2+ pulses, warm, well-perfused, no edema. NEUROLOGICAL: Cranial nerves II through XII grossly intact. Normal speech, gait not observed. PSYCH: Normal mood, normal affect. SKIN: Warm, dry, normal turgor, no rashes or lesions noted Laboratory Results - last 24 hr 06/22/17 06/22/17 06:10 06:10 WBC 9.0 RBC 3.50 L Hgb 10.3 L D Hct 30.6 L MCV 87.5 MCH 29.4 MCHC 33.6 RDW 14.7 Plt Count 149 MPV 9.9 Neutrophils % 79.1 Lymphocytes % 11.9 Monocytes % 8.6 Eosinophils % 0.1 Basophils % 0.3 Sodium 139 Potassium 3.8 Chloride 101 Carbon Dioxide 29 Anion Gap 9 BUN 6 L D Creatinine 0.9 Creat Clearance w eGFR > 60 Random Glucose 119 H D Calcium 8.4 L Phosphorus 2.2 L Magnesium 2.2 Total Bilirubin 0.5 AST 50 H ALT 21 Alkaline Phosphatase 48 Total Protein 5.9 L Albumin 3.3 L Active Medications Generic Name Dose Route Start Last Admin Trade Name Freq PRN Reason Stop Dose Admin Diazepam 10 mg 06/21/17 21:30 06/21/17 22:23 Valium - PO 06/24/17 21:30 10 mg Q6H PRN Administration WITHDRAWAL(CONT SUBST) Fentanyl 50 mcg 06/20/17 23:53 Sublimaze Injection - IVPUSH [id number] PRN PAIN-PACU ORDER X 4 DOSES ONLY Hydromorphone HCl 0 mg 06/20/17 23:45 06/22/17 08:21 Dilaudid Event Planning Intern - AIRCRAFT PILOT 06/27/17 23:56 0.2 mg AIRCRAFT PILOT KHRIS Administration Protocol Lactated Ringer's 1,000 mls @ 100 mls/hr 06/20/17 23:45 06/21/17 09:50 Lactated Ringers Solution IV 100 mls/hr ASDIR KHRIS Administration Ketorolac Tromethamine 30 mg 06/20/17 23:58 06/22/17 07:32 Toradol Injection - IVPUSH 06/25/17 23:57 30 mg Q6H PRN Administration PAIN LEVEL 6-10 Ondansetron HCl 4 mg 06/20/17 23:53 06/21/17 05:57 Zofran Injection IVPUSH 4 mg Q6H PRN Administration NAUSEA AND/OR VOMITING Ondansetron HCl 4 mg 06/20/17 23:58 Zofran Injection IVPUSH Q6H PRN NAUSEA AND/OR VOMITING Pantoprazole Sodium 40 mg 06/21/17 21:00 06/22/17 09:35 Protonix - PO 40 mg DAILY KHRIS Administration Promethazine HCl 12.5 mg 06/20/17 23:53 Phenergan Injection - IVPUSH Q6H PRN NAUSEA-FOR RESCUE AFTER 15 MIN ASSESSMENT/PLAN: Mr. Smart is a 41 yo male w/ no pmh who presents s/p elective L3-L4, L4-L5, L5- S1 PLIF, L3-S1 laminectomy, and L3-S1 spinal fusion with Dr. Hsu - POD 2. PLIF/Laminectomy/Spinal Fusion -Monitor I/O's -Pain management as written -Incentive spirometry -Patient passed gas; resume diet as tolerated -ABX as written Prophylaxis -SCD's, HEATHER's -Will replete electrolytes PRN Disposition -Dr. Hsu to evaluate later today for transfer to floor Visit type - Emergency Visit Emergency Visit: No - New Patient This patient is new to me today: No - Critical Care Critical Care patient: Yes Total Critical Care Time (in minutes): 36 Critical Care Statement: The care of this patient involved high complexity decision making to prevent further life threatening deterioration of the patient 's condition and/or to evaluate & treat vital organ system(s) failure or risk of failure.
--- NOTE | 2017-06-22 12:52 | PATH ---
Surgical Pathology Report Patient Name: ASIM SEPULVEDA [facility]. Rec. #: [id number] /Age/Gender: 1975 (Age: 41) / F Account: [id number] Location: [facility] Taken: 06/20/2017 Received: 06/21/2017 Reported: 06/22/2017 Physicians: Moreno Hsu M.D. Specimen(s) Received L3-L4-L5 SI DISC Clinical History L3-5 radiculopathy Final Diagnosis L3-L4, L5-S1 DISC, POSTERIOR LUMBAR FUSION: INTERVERTEBRAL DISC TISSUE. Electronically Signed Liliana Rahman M.D. Gross Description Received in formalin labeled "L3-L4-L5-S1 disc," is a 5.0 x 3.2 x 0.4 cm aggregate of huang fragments of fibrocartilaginous tissue. A sales donor recruitment representative portion is submitted in one cassette. /06/21/2017 saudi06/21/2017
--- NOTE | 2017-06-22 13:40 | PN ---
Progress Note (short form) - Note Progress Note: POD #2 - s/p L3-S1 PLIF under GA with dilaudid CHILD PSYCHOMETRIST for postop pain management. VSS. Pt. states pain score of 8. Pt. received ketorolac in addition earlier today with 2 boluses 0f 0.2mg dilaudid from CHILD PSYCHOMETRIST. Will increase CHILD PSYCHOMETRIST dose to 0.3mg for now. Will follow.
[2017-06-22] MEDS ORDERED: HYDROmorphone *PCA* 6MG/30ML DISP.SYRIN PCA SCH (13:42)
[2017-06-22] MEDS: LACTATED RINGERS SOLUTION 1,000 ML IV SCH (14:22)
[2017-06-22] MEDS: ACETAMINOPHEN 325 MG TABLET (FP) PO PRN ×2 (15:05→20:54)
[2017-06-23 06:29] LABS: BASO % 0.2 % (0-2.0); HEMOGLOBIN 9.4 GM/dL (11.7-16.9); LYMPH % 14.1 % (8-40); MCH 28.9 pg (25.7-33.7); MCHC 33.5 g/dl (32.0-35.9); MEAN CELL VOLUME 86.3 fl (80-96); MEAN PLT VOLUME 9.7 fl (7.5-11.1); MONO % 9.1 % (3.8-10.2); NEUT % 75.6 % (42.8-82.8); PLATELET COUNT 136 K/MM3 (134-434); RBC 3.25 M/mm3 (4.00-5.60); RDW 14.4 % (11.9-15.9); WHITE BLOOD COUNT 7.6 K/mm3 (4.0-10.0)
[2017-06-23 07:05] LABS: CHLORIDE 99 mmol/L (98-107); POTASSIUM 3.8 mmol/L (3.5-5.1); SODIUM 138 mmol/L (136-145)
[2017-06-23 07:22] LABS: ALK PHOS 53 U/L (45-117); ANION GAP 12 (8-16); BILIRUBIN,TOTAL 0.6 mg/dL (0.2-1.0); BLOOD UREA NITROGEN 6 mg/dL (7-18); CALCIUM 8.4 mg/dL (8.5-10.1); CO2 27 mmol/L (21-32); CREATININE 0.9 mg/dL (0.7-1.3); GLUCOSE,RANDOM 107 mg/dL (74-106); MAGNESIUM 2.2 mg/dL (1.8-2.4); SGOT/AST 40 U/L (15-37); SGPT/ALT 23 U/L (12-78)
--- NOTE | 2017-06-23 09:00 | PN ---
Progress Note (short form) - Note Progress Note: POD #3 - s/p L3-S1 PLIF under GA with dilaudid ARMATURE REWINDER for postop pain management. VSS. Pain improved with changes to ARMATURE REWINDER settings yesterday. Will continue on current settings and follow tomorrow.
[2017-06-23] MEDS: PANTOPRAZOLE 40 MG TABLET (FP) PO SCH (10:33)
--- NOTE | 2017-06-23 12:11 | PN ---
Teaching Attending Note Name of Resident: Asim Rivera ATTENDING PHYSICIAN STATEMENT I saw and evaluated the patient. I reviewed the resident's note and discussed the case with the resident. I agree with the resident's findings and plan as documented. SUBJECTIVE: Patient seen and examined in the ICU. POD #3: L3-L4, L4-L5, L5-S1 PLIF, L3-S1 laminectomy, and L3-S1 spinal fusion. Some improvement in back pain and SABA. No CP or SOB. Intake & Output 06/20/17 06/21/17 06/22/17 06/23/17 23:59 23:59 23:59 23:59 Intake Total 2675 2400 4200 1147 Output Total 1000 1440 2650 2300 Balance 1813 951 7914 -1153 Weight 173 lb 14.4 oz 175 lb 7.807 oz 175 lb 6 oz Last Vital Signs Temp Pulse Resp BP Pulse Ox 98.9 F 77 11 L 133/93 100 06/23/17 10:00 06/23/17 10:00 06/23/17 10:00 06/23/17 10:00 06/22/17 20:36 Active Medications Acetaminophen (Tylenol -) 650 mg PO Q4H PRN PRN Reason: FEVER Last Admin: 06/22/17 20:54 Dose: 650 mg Diazepam (Valium -) 10 mg PO Q6H PRN PRN Reason: WITHDRAWAL(CONT SUBST) Stop: 06/24/17 21:30 Last Admin: 06/21/17 22:23 Dose: 10 mg Fentanyl (Sublimaze Injection -) 50 mcg IVPUSH [id number] PRN PRN Reason: PAIN-PACU ORDER X 4 DOSES ONLY Hydromorphone HCl (Dilaudid Furnace Tapper -) 6 mg CLIENT ADMINISTRATOR CLIENT ADMINISTRATOR KHRIS PRN Reason: Protocol Stop: 06/27/17 23:56 Ketorolac Tromethamine (Toradol Injection -) 30 mg IVPUSH Q6H PRN PRN Reason: PAIN LEVEL 6-10 Stop: 06/25/17 23:57 Last Admin: 06/22/17 07:32 Dose: 30 mg Ondansetron HCl (Zofran Injection) 4 mg IVPUSH Q6H PRN PRN Reason: NAUSEA AND/OR VOMITING Last Admin: 06/21/17 05:57 Dose: 4 mg Ondansetron HCl (Zofran Injection) 4 mg IVPUSH Q6H PRN PRN Reason: NAUSEA AND/OR VOMITING Pantoprazole Sodium (Protonix -) 40 mg PO DAILY KHRIS Last Admin: 06/23/17 10:33 Dose: 40 mg Promethazine HCl (Phenergan Injection -) 12.5 mg IVPUSH Q6H PRN PRN Reason: NAUSEA-FOR RESCUE AFTER 15 MIN GENERAL: Awake, alert, and fully oriented, in no acute distress. HEAD: Normal with no signs of trauma. EYES: sclera anicteric, conjunctiva clear. No lid lag. EARS, NOSE, THROAT: Ears normal, nares patent, oropharynx clear without exudates. Moist mucous membranes. NECK: Normal range of motion, supple without lymphadenopathy, JVD, or masses. LUNGS: Breath sounds equal, clear to auscultation bilaterally. No wheezes, and no crackles. No accessory muscle use. HEART: Regular rate and rhythm, normal S1 and S2 without murmur, rub or gallop. ABDOMEN: Soft, nontender, not distended, normoactive bowel sounds, no guarding, no rebound, no masses. No hepatomegaly or splenomegaly. MUSCULOSKELETAL: Normal range of motion at all joints. No bony deformities or tenderness. No CVA tenderness. UPPER EXTREMITIES: 2+ pulses, warm, well-perfused. No cyanosis. No clubbing. Cap refill <2 seconds. No peripheral edema. LOWER EXTREMITIES: 2+ pulses, warm, well-perfused. No calf tenderness. No peripheral edema. NEUROLOGICAL: Cranial nerves II-XII intact. Normal speech. Normal gait. PSYCHIATRIC: Cooperative. Good eye contact. Appropriate mood and affect. SKIN: Warm, dry, normal turgor, no rashes or lesions noted. post-op bandages intact. Laboratory Results - last 24 hr 06/23/17 06/23/17 05:25 05:25 WBC 7.6 RBC 3.25 L Hgb 9.4 L Hct 28.0 L MCV 86.3 MCH 28.9 MCHC 33.5 RDW 14.4 Plt Count 136 MPV 9.7 Neutrophils % 75.6 Lymphocytes % 14.1 Monocytes % 9.1 Eosinophils % 1.0 D Basophils % 0.2 Sodium 138 Potassium 3.8 Chloride 99 Carbon Dioxide 27 Anion Gap 12 BUN 6 L Creatinine 0.9 Creat Clearance w eGFR > 60 Random Glucose 107 H Calcium 8.4 L Magnesium 2.2 Total Bilirubin 0.6 AST 40 H ALT 23 Alkaline Phosphatase 53 Total Protein 6.0 L Albumin 3.0 L ASSESSMENT/PLAN: POD#3: L3-L4, L4-L5, L5-S1 PLIF, L3-S1 laminectomy, and L3-S1 spinal fusion. -Monitor I/O's -Pain management as ordered -Incentive spirometry -Normal diet resumed after flatus -ABX per protocol -SCD's for VTE prophylaxis -Will replete electrolytes PRN -Floor per Surgical attending Dr Keller
--- NOTE | 2017-06-23 13:23 | PN ---
Physical Exam: SUBJECTIVE: Mr. Smart reports he feels warm as the temperature in his room was increased overnight as the thermostat is controlled by the room next door. He otherwise has no complaints and was able to eat yesterday although he would like better quality food. OBJECTIVE: No acute events overnight Vital Signs Period Temp Pulse Resp BP Sys/Aguilar Pulse Ox Last 24 Hr 98.8 F-101.1 F 70-105 11-20 110-142/65-95 100-100 GENERAL: The patient is awake, alert, and fully oriented, in no acute distress. HEAD: Normal with no signs of trauma. EYES: PERRL, extraocular movements intact, sclera anicteric, conjunctiva clear. No ptosis. ENT: Ears normal, nares patent, oropharynx clear without exudates, moist mucous membranes. NECK: Trachea midline, full range of motion, supple. LUNGS: Breath sounds equal, clear to auscultation bilaterally, no wheezes, no crackles, no accessory muscle use. HEART: Regular rate and rhythm, S1, S2 without murmur, rub or gallop. ABDOMEN: Soft, nontender, nondistended, normoactive bowel sounds, no guarding, no rebound, no hepatosplenomegaly, no masses. EXTREMITIES: 2+ pulses, warm, well-perfused, no edema. NEUROLOGICAL: Cranial nerves II through XII grossly intact. Normal speech, gait not observed. PSYCH: Normal mood, normal affect. SKIN: Warm, dry, normal turgor, no rashes or lesions noted Laboratory Results - last 24 hr 06/23/17 06/23/17 05:25 05:25 WBC 7.6 RBC 3.25 L Hgb 9.4 L Hct 28.0 L MCV 86.3 MCH 28.9 MCHC 33.5 RDW 14.4 Plt Count 136 MPV 9.7 Neutrophils % 75.6 Lymphocytes % 14.1 Monocytes % 9.1 Eosinophils % 1.0 D Basophils % 0.2 Sodium 138 Potassium 3.8 Chloride 99 Carbon Dioxide 27 Anion Gap 12 BUN 6 L Creatinine 0.9 Creat Clearance w eGFR > 60 Random Glucose 107 H Calcium 8.4 L Magnesium 2.2 Total Bilirubin 0.6 AST 40 H ALT 23 Alkaline Phosphatase 53 Total Protein 6.0 L Albumin 3.0 L Active Medications Generic Name Dose Route Start Last Admin Trade Name Freq PRN Reason Stop Dose Admin Acetaminophen 650 mg 06/22/17 14:53 06/22/17 20:54 Tylenol - PO 650 mg Q4H PRN Administration FEVER Diazepam 10 mg 06/21/17 21:30 06/21/17 22:23 Valium - PO 06/24/17 21:30 10 mg Q6H PRN Administration WITHDRAWAL(CONT SUBST) Fentanyl 50 mcg 06/20/17 23:53 Sublimaze Injection - IVPUSH [id number] PRN PAIN-PACU ORDER X 4 DOSES ONLY Hydromorphone HCl 6 mg 06/22/17 15:02 Dilaudid Implementation Specialist - TOOLING MECHANIC 06/27/17 23:56 TOOLING MECHANIC KHRIS Protocol Ketorolac Tromethamine 30 mg 06/20/17 23:58 06/22/17 07:32 Toradol Injection - IVPUSH 06/25/17 23:57 30 mg Q6H PRN Administration PAIN LEVEL 6-10 Ondansetron HCl 4 mg 06/20/17 23:53 06/21/17 05:57 Zofran Injection IVPUSH 4 mg Q6H PRN Administration NAUSEA AND/OR VOMITING Ondansetron HCl 4 mg 06/20/17 23:58 Zofran Injection IVPUSH Q6H PRN NAUSEA AND/OR VOMITING Pantoprazole Sodium 40 mg 06/21/17 21:00 06/23/17 10:33 Protonix - PO 40 mg DAILY KHRIS Administration Promethazine HCl 12.5 mg 06/20/17 23:53 Phenergan Injection - IVPUSH Q6H PRN NAUSEA-FOR RESCUE AFTER 15 MIN ASSESSMENT/PLAN: Mr. Smart is a 41 yo male w/ no pmh who presents s/p elective L3-L4, L4-L5, L5- S1 PLIF, L3-S1 laminectomy, and L3-S1 spinal fusion with Dr. Hsu - POD 3. PLIF/Laminectomy/Spinal Fusion -Monitor I/O's -Pain management w/ dilaudid TOOLING MECHANIC -Incentive spirometry -Patient passed gas; resume diet as tolerated -ABX as written Prophylaxis -SCD's, HEATHER's -Will replete electrolytes PRN -FEN Disposition -Discussed with Dr. Hsu and patient will go to floor today Visit type - Emergency Visit Emergency Visit: No - New Patient This patient is new to me today: No - Critical Care Critical Care patient: Yes Total Critical Care Time (in minutes): 35 Critical Care Statement: The care of this patient involved high complexity decision making to prevent further life threatening deterioration of the patient 's condition and/or to evaluate & treat vital organ system(s) failure or risk of failure.
[2017-06-23] MEDS: HYDROmorphone *PCA* 6MG/30ML DISP.SYRIN PCA SCH ×3 (13:35→15:10)
[2017-06-23] MEDS ORDERED: PROMETHAZINE HCL 25 MG/1 ML VIAL IVPUSH PRN (14:49)
[2017-06-23] MEDS ORDERED: KETOROLAC TROMETHAMINE 30 MG/1 ML VIAL IVPUSH PRN (14:49)
[2017-06-23] MEDS ORDERED: ONDANSETRON 4 MG/2 ML VIAL IVPUSH PRN ×2 (14:49)
[2017-06-23] MEDS: ceFAZolin 2 GRAM PREMIX BAG IVPB SCH (15:11)
[2017-06-23] MEDS: ACETAMINOPHEN 1000 MG/100 ML VIAL (NON FORMULARY) IVPB SCH (15:14)
--- NOTE | 2017-06-23 16:05 | PN ---
Physical Exam: SUBJECTIVE: Patient seen and examined at bedside. Was walking earlier around the ICU. OBJECTIVE: Vital Signs Period Temp Pulse Resp BP Sys/Aguilar Pulse Ox Last 24 Hr 98.8 F-100.2 F 70-105 11-20 110-142/65-95 100-100 GENERAL: The patient is awake, alert, and fully oriented, in no acute distress. LUNGS: CTA HEART: Regular rate and rhythm, S1, S2 ABDOMEN: Soft, nontender, nondistended, normoactive bowel sounds EXTREMITIES: 2+ pulses, warm, well-perfused, no edema. 5/5 motor; 5/5 sensory NEUROLOGICAL: Cranial nerves II through XII grossly intact. Normal speech, steady gait SPINE: Surgical dressing c/d/i Laboratory Results - last 24 hr 06/23/17 06/23/17 05:25 05:25 WBC 7.6 RBC 3.25 L Hgb 9.4 L Hct 28.0 L MCV 86.3 MCH 28.9 MCHC 33.5 RDW 14.4 Plt Count 136 MPV 9.7 Neutrophils % 75.6 Lymphocytes % 14.1 Monocytes % 9.1 Eosinophils % 1.0 D Basophils % 0.2 Sodium 138 Potassium 3.8 Chloride 99 Carbon Dioxide 27 Anion Gap 12 BUN 6 L Creatinine 0.9 Creat Clearance w eGFR > 60 Random Glucose 107 H Calcium 8.4 L Magnesium 2.2 Total Bilirubin 0.6 AST 40 H ALT 23 Alkaline Phosphatase 53 Total Protein 6.0 L Albumin 3.0 L Active Medications Generic Name Dose Route Start Last Admin Trade Name Freq PRN Reason Stop Dose Admin Acetaminophen 650 mg 06/23/17 14:49 Tylenol - PO Q4H PRN FEVER Diazepam 10 mg 06/23/17 14:49 Valium - PO 06/24/17 21:30 Q6H PRN WITHDRAWAL(CONT SUBST) Hydromorphone HCl 6 mg 06/23/17 14:49 06/23/17 15:10 Dilaudid School Secretary - ICE CREAM VAN VENDOR 06/27/17 23:56 Not Given ICE CREAM VAN VENDOR KHRIS Protocol Ketorolac Tromethamine 30 mg 06/23/17 14:49 Toradol Injection - IVPUSH 06/25/17 23:57 Q6H PRN PAIN LEVEL 6-10 Ondansetron HCl 4 mg 06/23/17 14:49 Zofran Injection IVPUSH Q6H PRN NAUSEA AND/OR VOMITING Ondansetron HCl 4 mg 06/23/17 14:49 Zofran Injection IVPUSH Q6H PRN NAUSEA AND/OR VOMITING Pantoprazole Sodium 40 mg 06/24/17 10:00 Protonix - PO DAILY KHRIS Promethazine HCl 12.5 mg 06/23/17 14:49 Phenergan Injection - IVPUSH Q6H PRN NAUSEA-FOR RESCUE AFTER 15 MIN ASSESSMENT/PLAN 41 year-old male with no significant PMH. L5/S1 spondylolisthesis with instability, and L3/4 L4/5 L5/S1 stenosis with instability s/p L3/4 L4/5 L5/S1 laminectomy with posterior interbody fusion, and L3 to S1 posterolateral arthrodesis POD #2 --ambulating around the unit --pain management per anesthesia --perioperative antibiotics per surgery --protonix for GI upset FEN Fluids: PO intake adequate Electrolytes: replete as indicated Nutrition: regular diet DVT prophylaxis: SCDs, oob, ambulation Physical therapy: WBAT Dispo: continues to require inpatient care. Full code. Visit type - Emergency Visit Emergency Visit: Yes ED Registration Date: 06/20/17 Care time: The patient presented to the Emergency Department on the above date and was hospitalized for further evaluation of their emergent condition. - New Patient This patient is new to me today: No - Critical Care Critical Care patient: No
--- NOTE | 2017-06-23 16:09 | PN ---
Physical Exam: SUBJECTIVE: Patient seen and examined. Walking around unit. Says he has no pain unless he bends over. OBJECTIVE: Vital Signs Period Temp Pulse Resp BP Sys/Aguilar Pulse Ox Last 24 Hr 98.2 F-100.2 F 70-105 11-20 110-142/65-95 100-100 GENERAL: The patient is awake, alert, and fully oriented, in no acute distress. LUNGS: CTA HEART: Regular rate and rhythm, S1, S2 ABDOMEN: Soft, nontender, nondistended, normoactive bowel sounds EXTREMITIES: 2+ pulses, warm, well-perfused, no edema. 5/5 motor; 5/5 sensory NEUROLOGICAL: Cranial nerves II through XII grossly intact. Normal speech, steady gait SPINE: Surgical dressing c/d/i Laboratory Results - last 24 hr 06/23/17 06/23/17 05:25 05:25 WBC 7.6 RBC 3.25 L Hgb 9.4 L Hct 28.0 L MCV 86.3 MCH 28.9 MCHC 33.5 RDW 14.4 Plt Count 136 MPV 9.7 Neutrophils % 75.6 Lymphocytes % 14.1 Monocytes % 9.1 Eosinophils % 1.0 D Basophils % 0.2 Sodium 138 Potassium 3.8 Chloride 99 Carbon Dioxide 27 Anion Gap 12 BUN 6 L Creatinine 0.9 Creat Clearance w eGFR > 60 Random Glucose 107 H Calcium 8.4 L Magnesium 2.2 Total Bilirubin 0.6 AST 40 H ALT 23 Alkaline Phosphatase 53 Total Protein 6.0 L Albumin 3.0 L Active Medications Generic Name Dose Route Start Last Admin Trade Name Freq PRN Reason Stop Dose Admin Acetaminophen 650 mg 06/23/17 14:49 Tylenol - PO Q4H PRN FEVER Diazepam 10 mg 06/23/17 14:49 Valium - PO 06/24/17 21:30 Q6H PRN WITHDRAWAL(CONT SUBST) Hydromorphone HCl 6 mg 06/23/17 14:49 06/23/17 15:[address] Tester - PRE ASSEMBLY WIRER 06/27/17 23:56 Not Given PRE ASSEMBLY WIRER KHRIS Protocol Ketorolac Tromethamine 30 mg 06/23/17 14:49 Toradol Injection - IVPUSH 06/25/17 23:57 Q6H PRN PAIN LEVEL 6-10 Ondansetron HCl 4 mg 06/23/17 14:49 Zofran Injection IVPUSH Q6H PRN NAUSEA AND/OR VOMITING Ondansetron HCl 4 mg 06/23/17 14:49 Zofran Injection IVPUSH Q6H PRN NAUSEA AND/OR VOMITING Pantoprazole Sodium 40 mg 06/24/17 10:00 Protonix - PO DAILY KHRIS Promethazine HCl 12.5 mg 06/23/17 14:49 Phenergan Injection - IVPUSH Q6H PRN NAUSEA-FOR RESCUE AFTER 15 MIN ASSESSMENT/PLAN: 41 year-old male with no significant PMH. L5/S1 spondylolisthesis with instability, and L3/4 L4/5 L5/S1 stenosis with instability s/p L3/4 L4/5 L5/S1 laminectomy with posterior interbody fusion, and L3 to S1 posterolateral arthrodesis POD #2 --ambulating around the unit --pain management per anesthesia; still with PRE ASSEMBLY WIRER --perioperative antibiotics per surgery --protonix for GI upset --bowel regimen FEN Fluids: PO intake adequate Electrolytes: replete as indicated Nutrition: regular diet DVT prophylaxis: SCDs, oob, ambulation Physical therapy: WBAT Dispo: continues to require inpatient care. Full code. Visit type - Emergency Visit Emergency Visit: Yes ED Registration Date: 06/20/17 Care time: The patient presented to the Emergency Department on the above date and was hospitalized for further evaluation of their emergent condition. - New Patient This patient is new to me today: No - Critical Care Critical Care patient: No
[2017-06-23] MEDS: LACTATED RINGERS SOLUTION 1,000 ML IV SCH (16:41)
[2017-06-24] MEDS: HYDROmorphone *PCA* 6MG/30ML DISP.SYRIN PCA SCH ×2 (06:11→16:21)
--- NOTE | 2017-06-24 08:44 | PN ---
Physical Exam: SUBJECTIVE: Patient seen and examined OBJECTIVE: Vital Signs Period Temp Pulse Resp BP Sys/Aguilar Pulse Ox Last 24 Hr 98.2 F-99.1 F 76-90 11-20 123-133/64-83 96 GENERAL: The patient is awake, alert, and fully oriented, in no acute distress. LUNGS: CTA HEART: Regular rate and rhythm, S1, S2 ABDOMEN: Soft, nontender, nondistended, normoactive bowel sounds EXTREMITIES: 2+ pulses, warm, well-perfused, no edema. 5/5 motor; 5/5 sensory NEUROLOGICAL: Cranial nerves II through XII grossly intact. Normal speech, steady gait SPINE: Surgical dressing c/d/i Active Medications Generic Name Dose Route Start Last Admin Trade Name Freq PRN Reason Stop Dose Admin Acetaminophen 650 mg 06/23/17 14:49 Tylenol - PO Q4H PRN FEVER Diazepam 10 mg 06/23/17 14:49 Valium - PO 06/24/17 21:30 Q6H PRN WITHDRAWAL(CONT SUBST) Hydromorphone HCl 6 mg 06/23/17 14:49 06/24/17 06:11 Dilaudid Claim Manager - HAND WASHER 06/27/17 23:56 6 mg HAND WASHER KHRIS Administration Protocol Ketorolac Tromethamine 30 mg 06/23/17 14:49 Toradol Injection - IVPUSH 06/25/17 23:57 Q6H PRN PAIN LEVEL 6-10 Ondansetron HCl 4 mg 06/23/17 14:49 Zofran Injection IVPUSH Q6H PRN NAUSEA AND/OR VOMITING Ondansetron HCl 4 mg 06/23/17 14:49 Zofran Injection IVPUSH Q6H PRN NAUSEA AND/OR VOMITING Pantoprazole Sodium 40 mg 06/24/17 10:00 Protonix - PO DAILY KHRIS Promethazine HCl 12.5 mg 06/23/17 14:49 Phenergan Injection - IVPUSH Q6H PRN NAUSEA-FOR RESCUE AFTER 15 MIN ASSESSMENT/PLAN 41 year-old male with no significant PMH. L5/S1 spondylolisthesis with instability, and L3/4 L4/5 L5/S1 stenosis with instability s/p L3/4 L4/5 L5/S1 laminectomy with posterior interbody fusion, and L3 to S1 posterolateral arthrodesis POD #2 --ambulating around the unit --pain management per anesthesia; HAND WASHER dc'd; switched to PO meds --perioperative antibiotics per surgery --protonix for GI upset --bowel regimen FEN Fluids: PO intake adequate Electrolytes: replete as indicated Nutrition: regular diet DVT prophylaxis: SCDs, oob, ambulation Physical therapy: WBAT Dispo: continues to require inpatient care. Full code. Visit type - Emergency Visit Emergency Visit: Yes ED Registration Date: 06/20/17 Care time: The patient presented to the Emergency Department on the above date and was hospitalized for further evaluation of their emergent condition. - New Patient This patient is new to me today: No - Critical Care Critical Care patient: No
[2017-06-24] MEDS: PANTOPRAZOLE 40 MG TABLET (FP) PO SCH (10:20)
[2017-06-24] MEDS: POLYETHYLENE GLYCOL 3350 119 GM BTL PO SCH ×2 (12:11→21:07)
[2017-06-24] MEDS: diazePAM 5 MG TABLET PO PRN ×2 (13:51→21:30)
[2017-06-24] MEDS: ACETAMINOPHEN 325 MG TABLET (FP) PO PRN ×2 (13:51→21:13)
--- NOTE | 2017-06-24 17:12 | PN ---
Progress Note (short form) - Note Progress Note: 41M s/p L3-L4, L4-L5, L5-S1 PLIF; L3-S1 laminectomies; L3-S1 posterior instrumented spinal fusion POD #4. Back & leg pain well controlled. No acute events overnight. Pt. denies overnight history of headaches, chest pain, shortness of breath, nausea, vomiting, chills, & sweats. (+) Voiding; (+) Flatus; (-) BM. (+) Walked in hallway. All labs and vital signs reviewed. PE: AAO x 3, NAD. Spine: Dressing C/D/I. B/L LE sensorimotor & vascular exams at baseline. 41M s/p L3-L4, L4-L5, L5-S1 PLIF; L3-S1 laminectomies; L3-S1 posterior instrumented spinal fusion POD #4. -Pain control: per anaesthesia team. -Mechanical DVT PPx. only: SCD's, HEATHER's. -Incentive spirometry; aggressive pulmonary toilet; raise head of bed as tolerated. -Diet as tolerated. -PT/OT/Rehab, OOB. -WBAT B/L LE. -f/u drain output. -Care per medical hospitalist team. -Discharge planning. -Will follow. Moreno Hsu MD (Orthopaedic Surgery).
--- NOTE | 2017-06-24 17:27 | PN ---
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 Pain well controlled so far. We'll sign off this case. Please reconsult if necessary.
--- NOTE | 2017-06-24 17:35 | PN ---
Progress Note (short form) - Note Progress Note: 41M s/p L3-L4, L4-L5, L5-S1 PLIF; L3-S1 laminectomies; L3-S1 posterior instrumented spinal fusion POD #3. Back & leg pain well controlled. No acute events overnight. Pt. denies overnight history of headaches, chest pain, shortness of breath, nausea, vomiting, chills, & sweats. (+) Voiding; (+) Flatus; (-) BM. (+) Walked in hallway. All labs and vital signs reviewed. PE: AAO x 3, NAD. Spine: Dressing C/D/I. B/L LE sensorimotor & vascular exams at baseline. 41M s/p L3-L4, L4-L5, L5-S1 PLIF; L3-S1 laminectomies; L3-S1 posterior instrumented spinal fusion POD #3. -Pain control: per anaesthesia team. -Mechanical DVT PPx. only: SCD's, HEATHER's. -Incentive spirometry; aggressive pulmonary toilet. -Diet as tolerated. -PT/OT/Rehab, OOB. -WBAT B/L LE. -f/u drain output. -Care per medical hospitalist team. -Discharge planning. -Will follow. Rk Hsu MD (Orthopaedic Surgery).
[2017-06-24] MEDS: oxyCODONE HCL 5 MG TABLET PO PRN (21:12)
[2017-06-24] MEDS ORDERED: DOCUSATE SODIUM 100 MG CAPSULE (FP) PO SCH (22:00)
[2017-06-25] MEDS: oxyCODONE HCL 5 MG TABLET PO PRN (06:32)
[2017-06-25] MEDS: ACETAMINOPHEN 325 MG TABLET (FP) PO PRN (06:35)
[2017-06-25] MEDS: PANTOPRAZOLE 40 MG TABLET (FP) PO SCH (09:54)
--- NOTE | 2017-06-25 11:35 | DS ---
Physical Exam: SUBJECTIVE: Patient seen and examined OBJECTIVE: Vital Signs Period Temp Pulse Resp BP Sys/Aguilar Pulse Ox Last 24 Hr 98 F-100.3 F 77-92 18-20 128-149/72-88 97 PHYSICAL EXAM GENERAL: The patient is awake, alert, and fully oriented, in no acute distress. LUNGS: CTA HEART: Regular rate and rhythm, S1, S2 ABDOMEN: Soft, nontender, nondistended, normoactive bowel sounds EXTREMITIES: 2+ pulses, warm, well-perfused, no edema. 5/5 motor; 5/5 sensory NEUROLOGICAL: Cranial nerves II through XII grossly intact. Normal speech, steady gait SPINE: Surgical dressing c/d/i LABS CBCD WBC 7.6 K/mm3 (4.0-10.0) 06/23/17 05:25 RBC 3.25 M/mm3 (4.00-5.60) L 06/23/17 05:25 Hgb 9.4 GM/dL (11.7-16.9) L 06/23/17 05:25 Hct 28.0 % (35.4-49) L 06/23/17 05:25 MCV 86.3 fl (80-96) 06/23/17 05:25 MCHC 33.5 g/dl (32.0-35.9) 06/23/17 05:25 RDW 14.4 % (11.9-15.9) 06/23/17 05:25 Plt Count 136 K/MM3 (134-434) 06/23/17 05:25 MPV 9.7 fl (7.5-11.1) 06/23/17 05:25 CMP Sodium 138 mmol/L (136-145) 06/23/17 05:25 Potassium 3.8 mmol/L (3.5-5.1) 06/23/17 05:25 Chloride 99 mmol/L (98-107) 06/23/17 05:25 Carbon Dioxide 27 mmol/L (21-32) 06/23/17 05:25 Anion Gap 12 (8-16) 06/23/17 05:25 BUN 6 mg/dL (7-18) L 06/23/17 05:25 Creatinine 0.9 mg/dL (0.7-1.3) 06/23/17 05:25 Creat Clearance w eGFR > 60 (>60) 06/23/17 05:25 Calcium 8.4 mg/dL (8.5-10.1) L 06/23/17 05:25 Total Bilirubin 0.6 mg/dL (0.2-1.0) 06/23/17 05:25 AST 40 U/L (15-37) H 06/23/17 05:25 ALT 23 U/L (12-78) 06/23/17 05:25 Alkaline Phosphatase 53 U/L (45-117) 06/23/17 05:25 Total Protein 6.0 g/dl (6.4-8.2) L 06/23/17 05:25 Albumin 3.0 g/dl (3.4-5.0) L 06/23/17 05:25 HOSPITAL COURSE: Date of Admission:06/20/17 Date of Discharge: 06/25/17 41 year-old male with no significant PMH. L5/S1 spondylolisthesis with instability, and L3/4 L4/5 L5/S1 stenosis with instability s/p L3/4 L4/5 L5/S1 laminectomy with posterior interbody fusion, and L3 to S1 posterolateral arthrodesis on 06/20/17 (Rk Hsu) --ambulating around the unit --pain management per anesthesia; EIGHT ARM OPERATOR dc'd 06/24; switched to PO meds --perioperative antibiotics per surgery --protonix for GI upset --bowel regimen Minutes to complete discharge: 35 Discharge Summary Reason For Visit: SPONDYLOLISTHESIS, LUMBAR REGION Condition: Improved - Instructions Diet, Activity, Other Instructions: You should follow up on the instructions given to you by your surgical team for follow-up care. Referrals: Rk Hsu MD [Staff Physician] - Moreno Hsu MD [Staff Physician] - Disposition: HOME - Home Medications Comprehensive Discharge Medication List: Ambulatory Orders Diazepam [Valium] 10 mg PO HS 06/17/17 Oxycodone HCl/Acetaminophen [Percocet 10-325 mg Tablet] 1 each PO TID 06/17/17 This patient is new to me today: No Emergency Visit: No Critical Care patient: No - Discharge Referral Referred to [facility] No
[2017-06-25 13:01] VITALS: BP 130/67; PULSE 84; TEMP 98.7
--- NOTE | 2017-06-26 14:07 | PN ---
Progress Note (short form) - Note Progress Note: 41M s/p L3-L4, L4-L5, L5-S1 PLIF; L3-S1 laminectomies; L3-S1 posterior instrumented spinal fusion POD #5. Back & leg pain well controlled. No acute events overnight. Pt. denies overnight history of headaches, chest pain, shortness of breath, nausea, vomiting, chills, & sweats. (+) Voiding; (+) Flatus; (+) BM. (+) Walked in hallway. All labs and vital signs reviewed. PE: AAO x 3, NAD. Spine: Dressing w/(+) serosanguinous spotting drainage. Dressing changed. Drain previously removed. Incision C/D/I. B/L LE sensorimotor & vascular exams at baseline. A/P: 41M s/p L3-L4, L4-L5, L5-S1 PLIF; L3-S1 laminectomies; L3-S1 posterior instrumented spinal fusion POD #5. -Pain control: per anaesthesia team. -Mechanical DVT PPx. only: SCD's, HEATHER's. -Incentive spirometry; aggressive pulmonary toilet; raise head of bed as tolerated. -Diet as tolerated. -PT/OT/Rehab, OOB. -WBAT B/L LE. -Care per medical hospitalist team. -Discharge planning. -Will follow. Rk Hsu MD (Orthopaedic Surgery).
== END 2017-06-25 13:06 | disposition home or self-care (01) | DRG 304 ==
LOC: EDSTATUS 08:00 → EDSEX 08:00 → JSAMEDAYSX 15:46 → JICU 06-21 01:44 → J8W 06-23 13:30
PROVIDERS: ADMIT Orthopaedic Surgery Orthopaedic Surgery of the Spine; ATTEND Nurse Practitioner Acute Care
PROC: 00Q20ZZ Repair Dura Mater, Open Approach (ICD-10-PCS; 2017-06-20)
PROC: 0SG30J1 Fusion of Lumbosacral Joint with Synthetic Substitute, Posterior Approach, Posterior Column, Open Approach (ICD-10-PCS; 2017-06-20)
PROC: 0SB40ZZ Excision of Lumbosacral Disc, Open Approach (ICD-10-PCS; 2017-06-20)
PROC: 0QB00ZZ Excision of Lumbar Vertebra, Open Approach (ICD-10-PCS; 2017-06-20)
PROC: XNS New Technology, Bones, Reposition (ICD-10-PCS; 2017-06-20)
PROC: 0SG30J1 Fusion of Lumbosacral Joint with Synthetic Substitute, Posterior Approach, Posterior Column, Open Approach (ICD-10-PCS; principal; 2017-06-20 17:00)
DX: M43.17 Spondylolisthesis, lumbosacral region (principal); M48.07 Spinal stenosis, lumbosacral region; G97.41 Accidental puncture or laceration of dura during a procedure; Y83.8 Other surgical procedures as the cause of abnormal reaction of the patient, or of later complication, without mention of misadventure at the time of the procedure; M40.299 Other kyphosis, site unspecified; G89.21 Chronic pain due to trauma; M54.5 Low back pain
CPT/HCPCS: 36415; 76000-TC-FY; 80048; 80053; 83735; 84100; 85025; 85027; 86850; 86900; 86901; 88304-TC; 94010; 94760; 97116-GP; 97161-GP; J0131; J1170